=== PATIENT | female | born 1980 | race Caucasian/White ===

== ENCOUNTER 2016-09-12 05:05 | Emergency (ER) | payer OTHER ==
[~2016-09-12] VITALS: Ht 154.9 cm; Wt 79.0 kg
[~2016-09-12 05:05] MED LIST: B COMPLETE1 EACH PO; FLONASE16 G1 BOTH NARES; FLOVENT 44120 INHALA IH; LORTAB 5-325 M1 EACH PO; PERCOCET 5/31 TABLET PO; PHENERGAN25 MG PR; PRENATAL TABLE1 EACH PO; PROTONIX20 MG PO; REGLAN10 MG PO; REGLAN5 MG PO; TRAMADOL HCL50 MG PO; TYLENOL WITH C1 EACH PO; VITAMIN B-625 MG PO; ZOFRAN ODT4 MG PO; ZOLOFT100 MG PO
[2016-09-12 05:09] VITALS: BP 144/93
== END 2016-09-12 05:13 | disposition left against medical advice (07) ==
LOC: EME 05:05
DX: J02.9 Acute pharyngitis, unspecified (principal); Z53.21 Procedure and treatment not carried out due to patient leaving prior to being seen by health care provider

== ENCOUNTER 2016-10-21 13:32 | Emergency (ER) | payer OTHER ==
[~2016-10-21] VITALS: Ht 162.6 cm; Wt 77.6 kg
[2016-10-21 15:29] LABS: HEMATOCRIT 37.7 % (36.0-46.0); MCH 28.6 PG (29.0-34.0); MCHC 33.4 G/DL (30.0-36.0); MCV 85.7 FL (83-99); MEAN PLAT.VOLUME 10.1 uM^3 (9.5-12.4); PLATELET COUNT 286 K/uL (156-360); RBC DIS.WIDTH-CV 13.6 % (11.8-14.6); RBC DIS.WIDTH-SD 41.7 % (39-53); WHITE BLOOD COUNT 7.9 K/uL (4.1-10.2)
[2016-10-21 15:33] LABS: BASOPHIL COUNT 0.1 K/uL (0-0.1); EOSINOPHIL (%) 3.2 % (0-5); EOSINOPHIL COUNT 0.3 K/uL (0-0.3); IMMATURE GRANULOCYTE (%) 0.1 % (0.0-0.7); IMMATURE GRANULOCYTE COUNT 0.1 K/uL; LYMPHOCYTE COUNT 2.8 K/uL (1.0-2.8); MONOCYTE COUNT 0.6 K/uL (0-0.8); NEUTROPHIL (%) 54.3 % (45-76); NEUTROPHIL COUNT 4.3 K/uL (1.8-6.4)
[2016-10-21 16:51] LABS: ADD MIUA? YES; BILIRUBIN NEGATIVE; BLOOD LARGE; COLOR YELLOW ((YELLOW)); GLUCOSE (STRIP) NEGATIVE; KETONES NEGATIVE; LEUKOCYTES NEGATIVE; NITRITE NEGATIVE; PROTEIN (STRIP) NEGATIVE; SPECIFIC GRAVITY 1.016 (1.000-1.030); UROBILINOGEN 0.2 MG/DL (0.2-1.0)
[2016-10-21 17:06] LABS: BACTERIA NONE SEEN /HPF; EPITHELIAL CELLS 1+ /HPF; HYALINE CASTS 0-5 /LPF; MUCUS TRACE /LPF; RED BLOOD CELLS TNTC /HPF (0-5); WHITE BLOOD CELLS 0-5 /HPF (0-5)
[2016-10-21 18:19] VITALS: BP 131/79
== END 2016-10-21 18:20 | disposition home or self-care (01) ==
LOC: EME 13:32
PROVIDERS: Emergency Medicine; Physician Assistant
DX: N93.9 Abnormal uterine and vaginal bleeding, unspecified (principal)
CPT/HCPCS: 76856; 81003; 83880; 84702; 85025; 99281; 99284